=== PATIENT | male | born 1970 | race Caucasian/White ===

== ENCOUNTER 2022-09-25 07:40 | Outpatient (CLI) | payer BC, SELFPAY ==
[2022-09-25] MEDS: PERFLUTREN LIPID MICROSPHERES 2 ML VIAL IV (09:29)
== END 2022-09-25 07:41 | disposition home or self-care (01) ==
LOC: RAD 07:42
PROVIDERS: PCP Family Medicine; Visit Provider Family Medicine
DX: Z82.49 Family history of ischemic heart disease and other diseases of the circulatory system (principal)
CPT/HCPCS: 93306; Q9957

== ENCOUNTER 2022-11-05 09:23 | Outpatient (CLI) | payer BC, SELFPAY ==
--- NOTE | 2022-11-05 07:08 | W.ANESCHARGE ---
Anesthesia Charges Start Date/Time Anesthesia Start Date: 11/05/22 Anesthesia Start Time: 10:51 Stop Date/Time Anesthesia Stop Date: 11/05/22 Anesthesia Stop Time: 11:56
--- NOTE | 2022-11-05 07:09 | PM.ANHP ---
HPI - Pre-Anesthesia History of Present Illness Time Seen by Provider: 10:36 Date Seen: 11/05/22 Date of service: 11/05/22 Source: patient and old records reviewed Review of Systems Status of ROS Reports: 6 or more systems reviewed and unremarkable except as noted in History and below [facility] Medical History (Updated 11/05/22 @ 10:37 by Inder Almonte MD) Colonoscopy planned Erectile dysfunction ?N52.9 - Male erectile dysfunction, unspecified (ICD-10) Family history of thoracic aortic aneurysm ?Z82.49 - Family history of ischemic heart disease and other diseases of the circulatory system (ICD-10) Low libido ?R68.82 - Decreased libido (ICD-10) Well adult health check ?Z00.00 - Encounter for general adult medical examination without abnormal findings (ICD-10) History of pyloric stenosis as a child ?Z87.19 - Personal history of other diseases of the digestive system (ICD-10) Encounter for routine history and physical examination of adult ?Z00.00 - Encounter for general adult medical examination without abnormal findings (ICD-10) Surgical History (Updated 09/09/22 @ 09:21 by Kristen Barron ~ PSR) Status post pyloromyotomy, follow-up exam ?Z09 - Encounter for follow-up examination after completed treatment for conditions other than malignant neoplasm (ICD-10) History of vasectomy ?Z98.52 - Vasectomy status (ICD-10) Social History (Updated 09/09/22 @ 09:24 by Kristen Barron ~ PSR) Narrative: Electronic cigarette use Smoking Status: Former smoker Little interest or pleasure in doing things: not at all Feeling down, depressed, or hopeless: not at all Meds Home Medications and Allergies Allergies Allergy/AdvReac Type Severity Reaction Status Date / Time dog dander Allergy Unknown Unknown Verified 09/10/22 13:00 Exam Const Documenting provider has reviewed patient's vital signs: yes Common normals: no apparent distress, oriented x3, healthy appearing, alert and well nourished General appearance: cooperative and comfortable Orientation/consciousness: Yes awake HENMT Common normals: normocephalic Head and scalp: normocephalic Neck & C-Spine Common normals: full ROM Chest Chest: symmetrical chest wall rise Resp Common normals: normal respiratory effort, no retractions, no use of accessory muscles and clear to auscultation bilaterally Auscultation: clear to auscultation bilaterally Cardio Common normals: regular rate, regular rhythm, S1 normal heart sound, S2 normal heart sound and no murmurs Rate: regular rate Rhythm: regular rhythm Heart sounds: S1 normal and S2 normal Neuro Common normals: oriented x3 Sensorium/orientation: awake and alert Assessment and Plan Assessment and plan (1) Colonoscopy planned: Status: Acute Plan ok to proceed with anesthesia for colonoscopy
--- NOTE | 2022-11-05 13:06 | W.ANESCHARGE ---
Anesthesia Charges Start Date/Time Anesthesia Start Date: 11/05/22 Anesthesia Start Time: 10:51 Stop Date/Time Anesthesia Stop Date: 11/05/22 Anesthesia Stop Time: 11:56
== END 2022-11-05 09:24 | disposition home or self-care (01) ==
LOC: OP CLINIC 09:25
PROVIDERS: PCP Family Medicine; Visit Provider Surgery
DX: Z12.11 Encounter for screening for malignant neoplasm of colon (principal); K63.5 Polyp of colon
CPT/HCPCS: 45381; 45385; 811; 88305

== ENCOUNTER 2023-11-02 09:54 | Outpatient (CLI) | payer OTHER, SELFPAY | END 2023-11-02 09:55 | disposition home or self-care (01) | LOC: LKVREF 09:55 | PROVIDERS: PCP Family Medicine; Visit Provider Family Medicine | DX: E78.00 Pure hypercholesterolemia, unspecified (principal); Z12.5 Encounter for screening for malignant neoplasm of prostate | CPT/HCPCS: 80061; G0103 ==

== ENCOUNTER 2023-11-08 08:58 | Outpatient (CLI) | payer OTHER, SELFPAY ==
--- NOTE | 2023-11-08 10:01 | W.ANESCHARGE ---
Anesthesia Charges Start Date/Time Anesthesia Start Date: 11/08/23 Anesthesia Start Time: 09:31 Stop Date/Time Anesthesia Stop Date: 11/08/23 Anesthesia Stop Time: 09:58
--- NOTE | 2023-11-08 11:02 | W.ANESCHARGE ---
Anesthesia Charges Start Date/Time Anesthesia Start Date: 11/08/23 Anesthesia Start Time: 09:31 Stop Date/Time Anesthesia Stop Date: 11/08/23 Anesthesia Stop Time: 09:58
== END 2023-11-08 08:59 | disposition home or self-care (01) ==
LOC: OP CLINIC 08:59
PROVIDERS: PCP Family Medicine; Visit Provider Internal Medicine
DX: Z86.010 Personal history of colon polyps (principal); K63.5 Polyp of colon
CPT/HCPCS: 00811; 45380; 88305; J2704

== ENCOUNTER 2024-11-23 09:03 | Outpatient (CLI) | payer OTHER, SELFPAY | END 2024-11-23 09:04 | disposition home or self-care (01) | PROVIDERS: PCP Family Medicine; Visit Provider Family Medicine | DX: Z00.00 Encounter for general adult medical examination without abnormal findings (principal); E78.00 Pure hypercholesterolemia, unspecified; N52.9 Male erectile dysfunction, unspecified; R79.89 Other specified abnormal findings of blood chemistry; Z12.5 Encounter for screening for malignant neoplasm of prostate | CPT/HCPCS: 80053; 80061; 84270; 84402; 84403; G0103 ==